=== PATIENT | female | born 1940 | race Caucasian/White ===

== ENCOUNTER 2018-01-14 06:03 | Observation (INO) | payer OTHER ==
--- NOTE | 2018-01-10 13:05 | Diagnostic Imaging Report ---
PROCEDURE:CHEST 2 VIEWS TECHNIQUE:PA and lateral chest INDICATION:Preoperative evaluation for knee surgery. COMPARISON:[facility], , CHEST 2 VIEWS, 08/07/2013, 9:44. FINDINGS: The lungs are clear and symmetrically inflated. No pleural effusions. The heart size, mediastinal contour, and pulmonary vasculature. Intact skeleton. CONCLUSION: No acute abnormality or interval change from July 2013. Dictated by: Iker Romero M.D. on 01/10/2018 at 13:09 Electronically approved by: Iker Romero M.D. on 01/10/2018 at 13:09
[2018-01-11 13:47] LABS: BASOPHILS % 0.5 % (0.0-1.0); HEMATOCRIT 37.1 % (34.2-44.1); HEMOGLOBIN 13.3 g/dL (12.0-16.0); LYMPHOCYTES # (AUTO) 3.4 (1.0-3.2); LYMPHOCYTES % 43.2 % (18.0-39.1); MEAN CORPUSCULAR HEMOGLOBIN 33.2 pg (28-32); MEAN CORPUSCULAR HGB CONC 35.8 g/dL (31-35); MEAN CORPUSCULAR VOLUME 92.5 fL (81-99); MONOCYTES # (AUTO) 0.6 (0.2-0.8); MONOCYTES % 7.8 % (4.4-11.3); NEUTROPHILS # (AUTO) 3.8 (2.1-6.9); PLATELET COUNT 362 x10e3/uL (140-360); RED BLOOD COUNT 4.01 x10e6/uL (3.6-5.1); RED CELL DISTRIBUTION WIDTH 12.8 % (11.7-14.4)
[2018-01-11 14:12] LABS: ANION GAP 16.3 mmol/L (8-16); BLOOD UREA NITROGEN 11 mg/dL (7-26); BUN/CREATININE RATIO 14 (6-25); CARBON DIOXIDE 26 mmol/L (22-29); CHLORIDE 98 mmol/L (98-107); CREATININE, SERUM 0.81 mg/dL (0.57-1.11); EST GLOMERULAR FILTRATION RATE > 60 ML/MIN (60-); GLUCOSE 97 mg/dL (74-118); POTASSIUM 4.3 mmol/L (3.5-5.1); SODIUM 136 mmol/L (136-145)
[~2018-01-14] VITALS: Ht 154.9 cm; Wt 78.0 kg
[~2018-01-14 06:03] MED LIST: ATORVASTATIN CA10 MG PO; BUPROPION XL150 MG PO; CELEBREX200 MG PO; CITALOPRAM HBR40 MG PO; CLONAZEPAM1 MG PO; HYDROCHLOROTHIA25 MG PO; LEVOTHYROXINE137 MCG PO; LOSARTAN POTAS100 MG PO; OMEPRAZOLE40 MG PO
[2018-01-14] MEDS ORDERED: VANCOMYCIN 1GM/NS 250 ML 250 ML ONE (07:21)
[2018-01-14] MEDS ORDERED: DEXAMETHASONE SOD PHOS 10 MG/1 ML VIAL ONE (07:21)
[2018-01-14] MEDS ORDERED: GABAPENTIN 300 MG CAP ONE (07:21)
[2018-01-14] MEDS ORDERED: CELECOXIB 200 MG CAP ONE (07:34)
[2018-01-14] MEDS ORDERED: ROPIVACAINE 246.25 MG, EPINEPHRINE HCL 1:1000 0.5 MG, CLONIDINE HCL 0.08 MG, KETOROLAC ... INJ ONE ×5 (08:00)
[2018-01-14] MEDS ORDERED: TRANEXAMIC ACID 1,000 MG/10 ML ML ONE (08:33)
[2018-01-14] MEDS ORDERED: BACITRACIN 50,000 UNIT VIAL ONE (08:33)
[2018-01-14] MEDS ORDERED: MUPIROCIN 2% OINT 22 GM TUBE ONE (08:33)
[2018-01-14] MEDS ORDERED: PROMETHAZINE HCL (IM) 25 MG/ML VIAL IM PRN (10:30)
[2018-01-14] MEDS ORDERED: DOCUSATE SODIUM 100 MG CAP PO PRN (10:30)
[2018-01-14] MEDS ORDERED: ONDANSETRON HCL INJ 2 MG/ML VIAL IV PRN (10:30)
[2018-01-14] MEDS ORDERED: KETOROLAC TROMETHAMINE 30 MG/ML VIAL IV PRN (10:30)
[2018-01-14] MEDS ORDERED: HYDROCODONE/APAP 5MG-325MG TAB PO PRN (10:30)
[2018-01-14] MEDS ORDERED: DIPHENHYDRAMINE HCL INJ 50 MG/ML VIAL IM/IV PRN (10:30)
[2018-01-14] MEDS ORDERED: ACETAMINOPHEN 650 MG SUPP PR PRN (10:30)
[2018-01-14] MEDS ORDERED: FENTANYL CITRATE/PF 100MCG/2 ML INJ ONE ×2 (11:02→17:46)
[2018-01-14] MEDS ORDERED: ACETAMINOPHEN 1000 MG/100 ML 100 ML IV ONE (11:05)
--- NOTE | 2018-01-14 11:18 | Diagnostic Imaging Report ---
PROCEDURE:KNEE LEFT 1-2 VIEWS TECHNIQUE:AP and crosstable lateral views left knee INDICATION:Left knee arthroplasty COMPARISON:None. FINDINGS: See conclusion. CONCLUSION: 1. Total left knee arthroplasty intact and in anatomic alignment. 2. Expected regional postsurgical changes including soft tissue gas, fluid, regional edema, and surgical nina. 3. No acute abnormality. Dictated by: Iker Romero M.D. on 01/14/2018 at 11:22 Electronically approved by: Iker Romero M.D. on 01/14/2018 at 11:22
--- NOTE | 2018-01-14 11:18 | Operative Report ---
DATE OF PROCEDURE: January 14, 2018 SILVER PLATER: Anshul Jasso PA-C The patient was brought to the operating room for induction of anesthesia. Throughout this case, my PA's assistance was necessary for retraction of soft tissue and positioning of the extremity. This allows for efficient and technically successful execution of the operation and is considered medically necessary. PREOPERATIVE DIAGNOSIS: Osteoarthritis, left knee. POSTOPERATIVE DIAGNOSIS: Osteoarthritis, left knee. PROCEDURE: Left total knee replacement. INDICATIONS: The patient is a 77-year-old lady who has end-stage arthritis in her left knee. She has failed conservative management and would like to proceed with a left total knee replacement. The risks and benefits of the procedure have been explained. She states she understands and wishes to proceed. DESCRIPTION OF PROCEDURE: The patient was brought to the operating room and placed under general anesthetic. She received a regional block, prophylactic antibiotics and tranexamic acid in the holding area. She has an allergy to penicillin and was given vancomycin. Her left lower extremity was prepped and draped in a sterile manner. A preoperative time out was performed. The extremity was exsanguinated, and a proximal tourniquet was inflated to 300 mmHg. An anterior incision with a medial parapatellar arthrotomy was performed. Soft-tissue releases were performed to bring the knee up into flexion with the patella everted. The cruciate ligaments were sacrificed. A Lopez and Nephew Lucy II posterior stabilized knee system was used throughout the case. Meniscal remnants and marginal osteophytes were removed. An extramedullary cutting guide was used to resect the proximal tibia. The cut was referenced off of the least affected lateral compartment. The tibial baseplate was noted to be a size number 3. The central fin punch was impacted, and attention was directed towards the distal femur. An intramedullary cutting guide was used to resect the distal femur in 6 degrees of valgus and rotation referenced off of a combination of landmarks including Banner line, the epicondylar axis, and the posterior condyle. The femoral component was a size number 4. The anterior and posterior cuts were made. Trial reductions were performed. A 9-mm ultracongruent tibial insert provided optimal soft-tissue balancing at full extension and 90 degrees of flexion. The patella was resurfaced with a 29-mm x 7.5-mm patellar button. The thickness was checked before and after and was right around 19 mm. Patellar tracking was noted to be concentric. The trial implants were then all removed. A 100-mL premixed pericapsular injection was placed into the surrounding soft tissue. The knee was thoroughly irrigated with a Pulsavac. The components were cemented into place using a single mix of Palacos cement preloaded with antibiotics. Care was taken to remove extravasated cement. The wound was further irrigated with a pulsatile lavage while the cement cured. The arthrotomy was then closed with interrupted #1 Ethibond. The knee was put through flexion and extension to ensure a secure closure. The skin was closed with subcuticular Vicryl and nina. A sterile bandage was applied. The patient was extubated and transported to the recovery room in stable condition. Blood loss was minimal. All needle and sponge counts were correct. Job#: [id number]
[2018-01-14 11:50] VITALS: BP 106/54
[2018-01-14] MEDS: ACETAMINOPHEN 1000 MG/100 ML IV SCH ×2 (12:00→16:28)
[2018-01-14 12:17] VITALS: BP 106/54
[2018-01-14] MEDS: SODIUM CHLORIDE 0.9% 1000ML 1,000 ML IV SCH ×2 (12:38→20:24)
[2018-01-14 16:15] VITALS: BP 116/54
[2018-01-14] MEDS: CELECOXIB 100 MG CAP PO SCH (16:28)
[2018-01-14] MEDS: ASPIRIN 325 MG TAB PO SCH (16:28)
[2018-01-14] MEDS ORDERED: ONDANSETRON HCL INJ 2 MG/ML VIAL ONE (17:26)
[2018-01-14] MEDS ORDERED: PROPOFOL IV EMULSION 10 MG/ML 20 ML VIAL ONE (17:26)
[2018-01-14] MEDS ORDERED: SEVOFLURANE INHAL SOLN 250 ML PEN BTL ONE (17:26)
[2018-01-14] MEDS ORDERED: LIDOCAINE HCL 2% LOCAL INJ 5 ML SDV VIAL INJ ONE (17:26)
[2018-01-14] MEDS ORDERED: LIDOCAINE 2%/ EPINEPHRINE 20ML MDV ONE (17:40)
[2018-01-14] MEDS ORDERED: ROPIVACAINE 0.5% 5 MG/ML 30 ML SDV ONE (17:40)
[2018-01-14] MEDS ORDERED: MIDAZOLAM HCL 2 MG/2 ML VIAL ONE (17:46)
[2018-01-14] MEDS: VANCOMYCIN 1GM/NS 250 ML 250 ML IV SCH (18:32)
[2018-01-14 20:00] VITALS: BP 113/55
[2018-01-14] MEDS ORDERED: ZOLPIDEM TARTRATE 5 MG TAB PO PRN (21:00)
[2018-01-14] MEDS: HYDROCODONE/APAP 7.5MG-325MG 1 EA TAB PO PRN (21:29)
[2018-01-15] MEDS: ACETAMINOPHEN 1000 MG/100 ML IV SCH ×2 (00:59→05:48)
[2018-01-15] MEDS: HYDROCODONE/APAP 7.5MG-325MG 1 EA TAB PO PRN ×3 (01:33→13:50)
[2018-01-15 04:57] VITALS: BP 120/59
[2018-01-15 06:36] LABS: HEMATOCRIT 30.8 % (34.2-44.1); HEMOGLOBIN 10.7 g/dL (12.0-16.0)
[2018-01-15 08:02] VITALS: BP 116/56
[2018-01-15] MEDS: ASPIRIN 325 MG TAB PO SCH (08:12)
[2018-01-15] MEDS: VANCOMYCIN 1GM/NS 250 ML 250 ML IV SCH (08:12)
[2018-01-15] MEDS: CELECOXIB 100 MG CAP PO SCH (08:12)
[2018-01-15] MEDS ORDERED: ACETAMINOPHEN 1000 MG/100 ML IV PRN (10:30)
[2018-01-15] MEDS ORDERED: ASPIRIN325 MG PO (12:18)
[2018-01-15 12:30] VITALS: BP 110/54
--- NOTE | 2018-01-15 15:31 | Discharge Summary ---
CHIEF COMPLAINT: Left knee pain. HISTORY OF PRESENT ILLNESS: This patient is a 77-year-old female who complains of left knee pain for over 2 years. She states the pain has gotten progressively worse over the last few months. X-rays are consistent with end-stage osteoarthritis. She feels she has failed all conservative management and would like to proceed with more aggressive intervention. The risks and benefits of a left total knee replacement were explained. The patient states she understands and wishes to proceed. HOSPITAL COURSE: The patient underwent a left total knee replacement without complications. She was then transferred to the recovery room and the floor in stable condition. She was followed by Dr. Frye for postop medical management. She remained stable throughout her hospital stay. She progressed nicely with physical therapy. She was able to be discharged home on postop day 1. PRINCIPAL DIAGNOSIS: Osteoarthritis left knee. PRINCIPAL PROCEDURE: Left total knee replacement. DISCHARGE INSTRUCTIONS: Patient was discharged home with home health and physical therapy arranged. She was to be weightbearing as tolerated with a rolling walker. She was to continue using her CPM as she did in the hospital. She was to resume her home medications as directed. She was to take aspirin twice a day for thromboprophylaxis. She was instructed to follow up in our office in roughly 8 to 10 days. Dictated by Anshul Jasso PA-C. LESLIE WALKER MD Job#: [id number]
[2018-01-15] MEDS ORDERED: CELECOXIB 200 MG CAP PO SCH (17:00)
== END 2018-01-15 14:41 | disposition home health service (06) ==
LOC: OR 06:03 → PACU V 11:59 → MED/SURG 12:01
PROVIDERS: ADMIT Specialist; ATTEND Specialist
DX: M17.12 Unilateral primary osteoarthritis, left knee (principal); I12.9 Hypertensive chronic kidney disease with stage 1 through stage 4 chronic kidney disease, or unspecified chronic kidney disease; N18.2 Chronic kidney disease, stage 2 (mild); K21.9 Gastro-esophageal reflux disease without esophagitis; E03.9 Hypothyroidism, unspecified; J42 Unspecified chronic bronchitis; Z88.0 Allergy status to penicillin; E78.5 Hyperlipidemia, unspecified
CPT/HCPCS: 27447; 36415 ×2; 71046; 73560; 80048; 85014; 85018; 85025; 86850; 86900; 86920; 93005; 97110 ×2; 97116; 97162; G0378 ×2; G8978; G8979; J0171; J1100; J1885; J2001 ×2; J2250; J2405; J2795; J3370 ×2; J7030

== ENCOUNTER 2018-01-25 14:02 | Emergency (ER) | payer OTHER ==
[~2018-01-25] VITALS: Ht 154.9 cm; Wt 68.0 kg
[~2018-01-25 14:02] MED LIST changes: +ASPIRIN325 MG PO
== END 2018-01-25 18:34 | disposition home or self-care (01) ==
LOC: ER 14:02
DX: R60.9 Edema, unspecified (principal); M25.562 Pain in left knee; Z96.652 Presence of left artificial knee joint
CPT/HCPCS: 93971; 99283

== ENCOUNTER 2018-02-15 11:31 | Emergency (ER) | payer OTHER ==
[~2018-02-15] VITALS: Ht 154.9 cm; Wt 68.0 kg
[2018-02-15] MEDS ORDERED: HYDROCODONE/APAP 5MG-325MG TAB PO ONE (12:15)
[2018-02-15] MEDS ORDERED: ONDANSETRON HCL 4 MG ORAL DISINTEGRATING TAB SL ONE (12:15)
== END 2018-02-15 14:20 | disposition home or self-care (01) ==
LOC: FSED 11:31
DX: S70.02XA Contusion of left hip, initial encounter (principal); M54.5 Low back pain; S50.811A Abrasion of right forearm, initial encounter; W18.39XA Other fall on same level, initial encounter; Y92.008 Other place in unspecified non-institutional (private) residence as the place of occurrence of the external cause; Z96.652 Presence of left artificial knee joint
CPT/HCPCS: 99283

== ENCOUNTER 2018-10-25 11:00 | Outpatient (RCR) | payer MEDICARE, OTHER | END 2018-10-27 | LOC: PT 11:00 | PROVIDERS: ATTEND Orthopaedic Surgery | DX: M70.62 Trochanteric bursitis, left hip (principal); M25.552 Pain in left hip; M62.81 Muscle weakness (generalized); R26.2 Difficulty in walking, not elsewhere classified; R26.9 Unspecified abnormalities of gait and mobility ==

== ENCOUNTER → 2020-03-31 | Outpatient (CLI) | payer MEDICARE ==
[~2020-03-31] MED LIST changes: +DIATRIZOATE MEGL/DIATRIZOA SOD 30 ML BTL PO ONE; +IOPAMIDOL 370 MG/ML 200 ML INFUS..BTL INJ ONE; +SODIUM CHLORIDE 0.9% 50ML 50 ML ONE
--- NOTE | 2020-03-31 10:29 | Diagnostic Imaging Report ---
Exam: CHEST 2 VIEWS Date: 03/31/2020 10:24 AM INDICATION: ^[id number] ^1000 ^VENTRAL HERNIA Comparison: 01/11/2020 FINDINGS: Lines/Tubes:None Lungs:The lungs are well inflated. No focal consolidation or pulmonary edema. Pleura:No pleural effusion. No pneumothorax. Heart/Mediastinum:The cardiomediastinal silhouette is normal in size and contour. Trachea projects midline. Bones/Soft Tissues: No acute osseous abnormality. Mild to moderate multilevel degenerative changes of the spine are noted. Upper abdomen: Cholecystectomy clips are noted in the right upper quadrant. IMPRESSION: Stable exam without acute intrathoracic process. Signed by: Merritt Garza MD on 03/31/2020 10:25 AM
[2020-03-31 10:57] LABS: BLOOD UREA NITROGEN 13 mg/dL (7-26); BUN/CREATININE RATIO 15 (6-25); CREATININE, SERUM 0.86 mg/dL (0.57-1.11); EST GLOMERULAR FILTRATION RATE > 60 ML/MIN (60-)
--- NOTE | 2020-03-31 11:32 | Diagnostic Imaging Report ---
CT of the abdomen and pelvis with contrast TECHNIQUE: CT of the abdomen and pelvis WITH intravenous contrast and WITH oral contrast. Dose modulation, iterative reconstruction, and/or weight-based adjustment of the mA/kV was utilized to reduce the radiation dose to as low as reasonably achievable. IV CONTRAST: 100 mL of Isovue-370 ORAL CONTRAST: Gastrografin RADIATION DOSE: Total DLP: 258 mGy*cm COMPLICATIONS: None INDICATION: ^[id number] ^1105 ^VENTRAL HERNIA. COMPARISON: None. FINDINGS: LOWER THORAX: Unremarkable. HEPATOBILIARY: No focal hepatic lesions. Gallbladder is surgically absent. Common bile duct measures 0.9 cm. SPLEEN: No splenomegaly. PANCREAS: No focal masses or ductal dilatation. ADRENALS: No adrenal nodules. KIDNEYS/URETERS: Asymmetric atrophy of the left kidney is noted with lobular contours. Left superior hypodense cysts are noted. Right mid pole lateral cortical cyst is noted measuring up to 4.2 cm. Nonobstructing right midpole calculus is noted measuring up to 8 mm. Negative for hydronephrosis or perinephric fluid collection. Ureters are not dilated. PELVIC ORGANS/BLADDER: Bladder is unremarkable. Uterus is surgically absent. Negative for pelvic free fluid. PERITONEUM/RETROPERITONEUM: No free air or fluid. There are multiple supraumbilical ventral abdominal hernias the smallest is the superiormost fat-containing ventral abdominal hernia with neck measuring 1.0 x 0.7 cm (axial image 32 and sagittal image 58). Inferior to this there is a second ventral abdominal hernia with neck measuring 1.4 x 1.2 cm (axial image 39 and sagittal image 61). Inferior to this and just above the umbilicus the largest ventral abdominal hernia is noted with neck measuring 3.2 x 2.7 cm (axial image 47 and sagittal image 61). Within this hernia a portion of the transverse colon is noted at the level of the neck but does not propagate into the hernia sac within the soft tissues. There is also a small calcification dependently within the hernia, nonspecific. LYMPH NODES: No lymphadenopathy. VESSELS: Negative for abdominal aortic aneurysm. There are scattered atherosclerotic changes of the abdominal aorta including small plaques at the origins of the celiac, superior mesenteric and bilateral renal arteries, most severe within the left renal artery. GI TRACT: Oral contrast is visualized within the moderate hiatal hernia and the stomach. Stomach is unremarkable. Duodenum is unremarkable. Small bowel loops are unremarkable. Contrast is not identified within the colon. Moderate stool burden is noted throughout the colon. A few diverticula of the distal descending and sigmoid colon are noted without surrounding inflammatory changes. BONES AND SOFT TISSUES: Negative for acute osseous abnormality. Focal advanced degenerative changes are noted at L1-2 and L2-3 with disc space narrowing and vacuum phenomena. No suspicious lytic or blastic lesion is identified. Soft tissues are unremarkable. IMPRESSION: 1. There are 3 separate supraumbilical ventral abdominal fat-containing hernias as described above. The largest is the inferior most just above the umbilicus. In this specific hernia the transverse colon does extend to the the neck but does not enter the hernia sac. The 2 smaller superior hernias containing no bowel. 2. Moderate hiatal hernia. 3. Asymmetric atrophy of the left kidney with large amount of calcific plaque at the origin of the left renal artery. Bilateral renal cortical cysts. 4. Uncomplicated colonic diverticulosis. Mild to moderate colonic stool retention. Signed by: Merritt Garza MD on 03/31/2020 11:29 AM
[2020-03-31 11:38] LABS: BASOPHILS # (AUTO) 0.1 (0.0-0.1); BASOPHILS % 0.7 % (0.0-1.0); EOSINOPHILS # (AUTO) 0.1 (0.0-0.4); EOSINOPHILS % 1.8 % (0.0-6.0); HEMATOCRIT 34.5 % (34.2-44.1); HEMOGLOBIN 11.3 g/dL (12.0-16.0); LYMPHOCYTES # (AUTO) 2.8 (1.0-3.2); LYMPHOCYTES % 39.7 % (18.0-39.1); MEAN CORPUSCULAR HEMOGLOBIN 28.8 pg (28-32); MEAN CORPUSCULAR HGB CONC 32.8 g/dL (31-35); MONOCYTES # (AUTO) 0.6 (0.2-0.8); MONOCYTES % 8.8 % (4.4-11.3); NEUTROPHILS # (AUTO) 3.4 (2.1-6.9); NEUTROPHILS % 48.6 % (38.7-80.0); PLATELET COUNT 288 x10e3/uL (140-360); RED BLOOD COUNT 3.92 x10e6/uL (3.6-5.1); RED CELL DISTRIBUTION WIDTH 14.9 % (11.7-14.4)
[2020-03-31 11:41] LABS: BILIRUBIN,URINE NEGATIVE (NEGATIVE); CLARITY,URINE CLEAR (CLEAR); COLOR,URINE YELLOW (YELLOW); KETONES,URINE NEGATIVE (NEGATIVE); LEUKOCYTE ESTERASE ,URINE SMALL (NEGATIVE); NITRITE,URINE NEGATIVE (NEGATIVE); PROTEIN,URINE DIPSTICK NEGATIVE (NEGATIVE); URINE UROBILINOGEN 0.2 mg/dL (0.2 - 1)
[2020-03-31 12:00] LABS: BACTERIA,URINE RARE /HPF; EPITHELIAL CELLS,URINE RARE /LPF; RBC,URINE 0-5 /HPF (0-5); WBC,URINE (MAN) 0-5 /HPF (0-5)
[2020-03-31 12:01] LABS: ANION GAP 14.6 mmol/L (8-16); BLOOD UREA NITROGEN 12 mg/dL (7-26); BUN/CREATININE RATIO 16 (6-25); CALCIUM 8.1 mg/dL (8.4-10.2); CARBON DIOXIDE 21 mmol/L (22-29); CHLORIDE 105 mmol/L (98-107); CREATININE, SERUM 0.77 mg/dL (0.57-1.11); EST GLOMERULAR FILTRATION RATE > 60 ML/MIN (60-); GLUCOSE 104 mg/dL (74-118); POTASSIUM 3.6 mmol/L (3.5-5.1); SODIUM 137 mmol/L (136-145)
== END ==
LOC: CT 09:27
PROVIDERS: ATTEND Surgery
DX: K43.9 Ventral hernia without obstruction or gangrene (principal)
CPT/HCPCS: 36415; 71046; 74177; 80048; 81001; 82565; 84520; 85025; 93005; Q9967

== ENCOUNTER 2020-05-27 07:29 | Inpatient (IN) | payer MEDICARE, OTHER ==
[2020-05-24 15:31] LABS: BASOPHILS # (AUTO) 0.1 (0.0-0.1); BASOPHILS % 0.7 % (0.0-1.0); EOSINOPHILS # (AUTO) 0.5 (0.0-0.4); EOSINOPHILS % 5.1 % (0.0-6.0); HEMATOCRIT 38.2 % (34.2-44.1); HEMOGLOBIN 12.7 g/dL (12.0-16.0); LYMPHOCYTES # (AUTO) 4.9 (1.0-3.2); MEAN CORPUSCULAR HEMOGLOBIN 29.7 pg (28-32); MEAN CORPUSCULAR HGB CONC 33.2 g/dL (31-35); MEAN CORPUSCULAR VOLUME 89.5 fL (81-99); MONOCYTES # (AUTO) 0.9 (0.2-0.8); MONOCYTES % 8.9 % (4.4-11.3); NEUTROPHILS # (AUTO) 3.2 (2.1-6.9); NEUTROPHILS % 33.9 % (38.7-80.0); PLATELET COUNT 356 x10e3/uL (140-360); RED BLOOD COUNT 4.27 x10e6/uL (3.6-5.1); RED CELL DISTRIBUTION WIDTH 14.5 % (11.7-14.4)
[2020-05-24 15:48] LABS: ANION GAP 14.6 mmol/L (8-16); BLOOD UREA NITROGEN 10 mg/dL (7-26); BUN/CREATININE RATIO 12 (6-25); CALCIUM 8.8 mg/dL (8.4-10.2); CARBON DIOXIDE 24 mmol/L (22-29); CHLORIDE 105 mmol/L (98-107); CREATININE, SERUM 0.83 mg/dL (0.57-1.11); EST GLOMERULAR FILTRATION RATE > 60 ML/MIN (60-); GLUCOSE 90 mg/dL (74-118); POTASSIUM 3.6 mmol/L (3.5-5.1); SODIUM 140 mmol/L (136-145)
[~2020-05-27] VITALS: Ht 154.9 cm; Wt 63.5 kg
[~2020-05-27 07:29] MED LIST changes: -DIATRIZOATE MEGL/DIATRIZOA SOD 30 ML BTL PO ONE; -IOPAMIDOL 370 MG/ML 200 ML INFUS..BTL INJ ONE; -SODIUM CHLORIDE 0.9% 50ML 50 ML ONE
[2020-05-27] MEDS ORDERED: CLINDAMYCIN 600MG / 50ML 50 ML IV ONE (08:33)
[2020-05-27] MEDS ORDERED: TRAZODONE HCL50 MG PO (08:50)
[2020-05-27] MEDS ORDERED: LEVOCETIRIZINE D5 MG PO (08:50)
[2020-05-27] MEDS ORDERED: CYMBALTA30 MG PO (08:50)
[2020-05-27] MEDS ORDERED: VITAMIN D250 MC1 PO (08:50)
[2020-05-27] MEDS ORDERED: ACETAMINOPHEN 1000 MG/100 ML 100 ML IV ONE (09:33)
[2020-05-27] MEDS ORDERED: LEVOFLOXACIN 500MG/D5W 100ML 100 ML IV ONE ×2 (09:36→12:30)
[2020-05-27] MEDS ORDERED: VANCOMYCIN HCL 1 GM VIAL ONE (10:19)
[2020-05-27] MEDS ORDERED: LIDOCAINE 1% W/EPINEPHRINE 20 ML VIAL ONE (11:41)
[2020-05-27] MEDS ORDERED: BUPIVACAINE 0.25% 30ML SDV INJ ONE (11:41)
[2020-05-27] MEDS ORDERED: HYDROCODONE/APAP 7.5MG-325MG 1 EA TAB PO PRN (12:15)
[2020-05-27] MEDS ORDERED: DEXAMETHASONE SOD PHOS INJ 4 MG/ML VIAL ONE (12:23)
[2020-05-27] MEDS ORDERED: LABETALOL HCL 5 MG/ML 20ML VIAL ONE (12:23)
[2020-05-27] MEDS ORDERED: SEVOFLURANE INHAL SOLN 250 ML PEN BTL ONE (12:23)
[2020-05-27] MEDS ORDERED: LIDOCAINE HCL 2% LOCAL INJ 5 ML SDV VIAL INJ ONE (12:23)
[2020-05-27] MEDS ORDERED: NEOSTIGMINE 1 MG/ML 10ML VIAL ONE (12:23)
[2020-05-27] MEDS ORDERED: PROPOFOL IV EMULSION 10 MG/ML 20 ML VIAL ONE (12:23)
[2020-05-27] MEDS ORDERED: GLYCOPYRROLATE INJ 0.2 MG/ML VIAL ONE (12:23)
[2020-05-27] MEDS ORDERED: ONDANSETRON HCL INJ 2MG/ML 2ML 2 MG/ML VIAL ONE (12:23)
[2020-05-27] MEDS ORDERED: ROCURONIUM BROMIDE 10 MG/ML 5ML VIAL IV ONE (12:23)
[2020-05-27] MEDS ORDERED: FENTANYL CITRATE/PF 100MCG/2 ML INJ ONE ×2 (13:08→13:10)
[2020-05-27] MEDS ORDERED: CLINDAMYCIN 600MG / 50ML 50 ML IV SCH (14:00)
[2020-05-27 15:30] VITALS: BP 132/61
[2020-05-27 15:32] VITALS: BP 132/61
[2020-05-27 16:33] VITALS: BP 132/61
[2020-05-27] MEDS ORDERED: SODIUM CHLORIDE 0.9% 250ML 250 ML ONE (17:11)
[2020-05-27] MEDS ORDERED: LACTATED RINGER'S 1,000 ML INJ SCH (17:45)
[2020-05-27] MEDS: CLINDAMYCIN 600MG / 50ML 50 ML IV SCH (18:21)
[2020-05-27 20:00] VITALS: BP 107/55
[2020-05-27] MEDS: ONDANSETRON HCL INJ 2MG/ML 2ML 2 MG/ML VIAL IV PRN (21:00)
[2020-05-27] MEDS: HYDROMORPHONE 1MG/1ML INJ IV PRN (21:00)
[2020-05-27 21:06] VITALS: BP 107/55
[2020-05-28] VITALS (8 sets, daily range): BP systolic 95–113; BP diastolic 48–56
[2020-05-28] MEDS: CLINDAMYCIN 600MG / 50ML 50 ML IV SCH ×2 (01:48→18:38)
[2020-05-28] MEDS: ONDANSETRON HCL INJ 2MG/ML 2ML 2 MG/ML VIAL IV PRN (04:58)
[2020-05-28] MEDS: HYDROMORPHONE 1MG/1ML INJ IV PRN ×4 (05:05→20:03)
[2020-05-28 05:13] LABS: BASOPHILS % 0.2 % (0.0-1.0); HEMATOCRIT 30.7 % (34.2-44.1); HEMOGLOBIN 10.4 g/dL (12.0-16.0); LYMPHOCYTES # (AUTO) 2.8 (1.0-3.2); LYMPHOCYTES % 27.9 % (18.0-39.1); MEAN CORPUSCULAR HGB CONC 33.9 g/dL (31-35); MEAN CORPUSCULAR VOLUME 91.4 fL (81-99); MONOCYTES % 9.9 % (4.4-11.3); NEUTROPHILS # (AUTO) 6.1 (2.1-6.9); NEUTROPHILS % 61.6 % (38.7-80.0); PLATELET COUNT 327 x10e3/uL (140-360); RED BLOOD COUNT 3.36 x10e6/uL (3.6-5.1); RED CELL DISTRIBUTION WIDTH 14.6 % (11.7-14.4)
[2020-05-28] MEDS: LEVOTHYROXINE SODIUM 25 MCG TABLET PO SCH (05:33)
[2020-05-28] MEDS: LEVOTHYROXINE SODIUM 112 MCG TAB PO SCH (05:33)
[2020-05-28 05:35] LABS: ANION GAP 13.3 mmol/L (8-16); CALCIUM 8.2 mg/dL (8.4-10.2); CREATININE, SERUM 1.09 mg/dL (0.57-1.11); POTASSIUM 4.3 mmol/L (3.5-5.1)
[2020-05-28] MEDS ORDERED: NON-FORMULARY MEDICATION (Levocetirizine Dihydrochloride 5 MG) PO SCH (09:00)
[2020-05-28] MEDS ORDERED: NON-FORMULARY MEDICATION (Levothyroxine Sodium 137 MCG) PO SCH (09:00)
[2020-05-28] MEDS ORDERED: ATORVASTATIN 10 MG TAB PO SCH (09:00)
[2020-05-28] MEDS: DULOXETINE HCL 30 MG DELAYED RELEASE PO SCH (10:40)
[2020-05-28] MEDS: PANTOPRAZOLE SOD 40 MG TABEC PO SCH (10:40)
[2020-05-28] MEDS: BUPROPION HCL 150 MG TABCR PO SCH (10:40)
[2020-05-28] MEDS: LORATADINE 10 MG TAB PO SCH (10:40)
[2020-05-28] MEDS: TRAZODONE HCL 50 MG TAB PO SCH (10:40)
[2020-05-28] MEDS: LOSARTAN POTASSIUM 100 MG TAB PO SCH (10:40)
[2020-05-28] MEDS ORDERED: LEVOFLOXACIN 500MG/D5W 100ML 100 ML IV SCH (17:00)
[2020-05-28] MEDS: LACTATED RINGER'S 1,000 ML INJ SCH (17:27)
[2020-05-28] MEDS ORDERED: ATORVASTATIN 20 MG TAB PO SCH (21:00)
[2020-05-29] VITALS: BP 106/51
[2020-05-29] MEDS: HYDROMORPHONE 1MG/1ML INJ IV PRN (01:00)
[2020-05-29] MEDS: CLINDAMYCIN 600MG / 50ML 50 ML IV SCH (02:00)
[2020-05-29 04:00] VITALS: BP 119/47
[2020-05-29] MEDS: LEVOTHYROXINE SODIUM 25 MCG TABLET PO SCH (06:04)
[2020-05-29] MEDS: LEVOTHYROXINE SODIUM 112 MCG TAB PO SCH (06:04)
[2020-05-29 08:30] VITALS: BP 135/62
[2020-05-29] MEDS: LORATADINE 10 MG TAB PO SCH (08:43)
[2020-05-29] MEDS: DULOXETINE HCL 30 MG DELAYED RELEASE PO SCH (08:43)
[2020-05-29] MEDS: PANTOPRAZOLE SOD 40 MG TABEC PO SCH (08:44)
[2020-05-29] MEDS: TRAZODONE HCL 50 MG TAB PO SCH (08:44)
[2020-05-29] MEDS: BUPROPION HCL 150 MG TABCR PO SCH (08:44)
[2020-05-29] MEDS: LOSARTAN POTASSIUM 100 MG TAB PO SCH (08:53)
[2020-05-29 09:00] VITALS: BP 135/62
[2020-05-29] MEDS ORDERED: TRAMADOL HCL 50 MG TAB PO PRN (09:15)
[2020-05-29 12:17] VITALS: BP 112/49
[2020-05-29] MEDS: LACTATED RINGER'S 1,000 ML INJ SCH (12:45)
[2020-06-02] MEDS ORDERED: ERGOCALCIFEROL PO SCH (09:00)
== END 2020-05-29 14:03 | disposition home or self-care (01) | DRG 355 ==
LOC: OR 07:29 → PACU V 12:16 → MED/SURG 15:00
PROVIDERS: ADMIT Surgery; ATTEND Surgery
PROC: 0WUF0JZ Supplement Abdominal Wall with Synthetic Substitute, Open Approach (ICD-10-PCS; principal; 2020-05-27 09:30)
DX: K43.9 Ventral hernia without obstruction or gangrene (principal); Z11.59 Encounter for screening for other viral diseases; I10 Essential (primary) hypertension; F32.9 Major depressive disorder, single episode, unspecified; F41.9 Anxiety disorder, unspecified; J45.909 Unspecified asthma, uncomplicated; K21.9 Gastro-esophageal reflux disease without esophagitis
CPT/HCPCS: 36415; 80048; 85025; C1781; J1100; J1170; J1956; J2001; J2405; J2710; J3010; J3370; J7050; J7121; U0002